=== PATIENT | female | born 1950 | race Caucasian/White ===

== ENCOUNTER 2019-11-21 10:15 | Outpatient (CLI) | payer MEDICARE, SELFPAY ==
--- NOTE | 2019-11-21 10:58 | ECG_ITS ---
Measurements Intervals [place] Rate: 61 P: 21 IL: 202 QRS: -8 QRSD: 92 T: 18 QT: 413 QTc: 418 Interpretive Statements SINUS RHYTHM BORDERLINE AV CONDUCTION DELAY VOLTAGE CRITERIA FOR LVH DELAYED PRECORDIAL R/S TRANSITION BASELINE ARTIFACT- I, II, III, AVR, AVL, AVF BORDERLINE ECG Electronically Signed On 11-21-2019 11:39:03 CDT by Michael Ch D.O.
[2019-11-21 11:35] LABS: Basophils Absolute Auto 0.1 K/mm3 (0.0-0.1); Basophils Percent Auto 0.8 % (0.2-1.2); Eosinophils Absolute Auto 0.1 K/mm3 (0-0.3); Eosinophils Percent Auto 1.4 % (0-4.4); Hematocrit 41.2 % (37.0-47.0); Hemoglobin 13.4 g/dL (12.0-15.0); Immature Granulocyte Absolute 0.02 K/mm3 (0.00-0.031); Immature Granulocyte Percent A 0.3 % (0-0.5); Lymphocytes Absolute Auto 2.91 K/mm3 (0.9-3.2); Lymphocytes Percent Auto 37.9 % (18.3-44.2); Mean Corpuscular HGB Conc 32.5 g/dl (32-36); Mean Corpuscular Volume 86.2 fl (80-100); Monocytes Absolute Auto 0.5 K/mm3 (0.1-0.6); Monocytes Percent Auto 6.9 % (2.6-8.5); Neutrophils Absolute Auto 4.1 K/mm3 (1.3-6.7); Neutrophils Percent Auto 52.7 % (45.5-73.1); Platelet Count Result 373 k/mm3 (150-375); Red Blood Count 4.78 M/mm3 (4.2-5.4); Red Cell Distribution Width 12.8 % (11.5-14.5); White Blood Count 7.7 K/mm3 (4.5-10.0)
[2019-11-21 11:45] LABS: INR 0.9; Prothrombin Time 11.6 Seconds (11.1-14.7)
[2019-11-21 11:46] LABS: Partial Thromboplastin Time 28.4 SECONDS (22.3-36.8)
[2019-11-21 11:55] LABS: Alanine Aminotransferase 20 U/L (4-35); Albumin Level 4.8 g/dL (3.5-5.1); Alkaline Phosphatase 65 U/L (38-126); Aspartate Amino Transferase 22 U/L (14-36); Bilirubin,Total 0.3 mg/dL (0.2-1.3); Blood Urea Nitrogen 14 mg/dL (7-17); Calcium 9.5 mg/dL (8.4-10.2); Carbon Dioxide 29 mmol/L (22-30); Chloride 103 mmol/L (98-107); Estimated Glomerular Filt Rate > 60; Glucose 90 mg/dL (65-105); Sodium 138 mmol/L (137-145)
== END 2019-11-21 10:16 | disposition home or self-care (01) ==
PROVIDERS: PCP Internal Medicine; Visit Provider Urology
DX: Z01.818 Encounter for other preprocedural examination (principal); I10 Essential (primary) hypertension; N95.0 Postmenopausal bleeding; D25.9 Leiomyoma of uterus, unspecified
CPT/HCPCS: 36415; 80053; 85025; 85610; 85730; 86850; 86900; 86901; 87077; 87086; 87088; 87186; 93005

== ENCOUNTER 2020-03-16 10:41 | Outpatient (CLI) | payer MEDICARE, SELFPAY ==
[2020-03-16 11:33] LABS: Basophils Absolute Auto 0.1 K/mm3 (0.0-0.1); Basophils Percent Auto 0.7 % (0.2-1.2); Eosinophils Absolute Auto 0.1 K/mm3 (0-0.3); Eosinophils Percent Auto 1.4 % (0-4.4); Hematocrit 40.8 % (37.0-47.0); Hemoglobin 13.2 g/dL (12.0-15.0); Immature Granulocyte Absolute 0.02 K/mm3 (0.00-0.031); Immature Granulocyte Percent A 0.2 % (0-0.5); Lymphocytes Percent Auto 40.9 % (18.3-44.2); Mean Corpuscular HGB Conc 32.4 g/dl (32-36); Mean Corpuscular Hemoglobin 27.9 pg (26-34); Mean Corpuscular Volume 86.3 fl (80-100); Mean Platelet Volume 8.6 fl (7.4-10.4); Monocytes Absolute Auto 0.5 K/mm3 (0.1-0.6); Monocytes Percent Auto 6.4 % (2.6-8.5); Neutrophils Absolute Auto 4.2 K/mm3 (1.3-6.7); Neutrophils Percent Auto 50.4 % (45.5-73.1); Platelet Count Result 354 k/mm3 (150-375); Red Blood Count 4.73 M/mm3 (4.2-5.4); Red Cell Distribution Width 12.8 % (11.5-14.5); White Blood Count 8.3 K/mm3 (4.5-10.0)
[2020-03-16 11:37] LABS: INR 0.9; Prothrombin Time 11.7 Seconds (11.1-14.7)
[2020-03-16 11:38] LABS: Partial Thromboplastin Time 27.5 SECONDS (22.3-36.8)
[2020-03-16 11:44] LABS: Alanine Aminotransferase 21 U/L (4-35); Albumin Level 4.9 g/dL (3.5-5.1); Alkaline Phosphatase 70 U/L (38-126); Aspartate Amino Transferase 22 U/L (14-36); Bilirubin,Total 0.3 mg/dL (0.2-1.3); Blood Urea Nitrogen 17 mg/dL (7-17); Calcium 9.2 mg/dL (8.4-10.2); Carbon Dioxide 26 mmol/L (22-30); Chloride 106 mmol/L (98-107); Estimated Glomerular Filt Rate > 60; Glucose 100 mg/dL (65-105); Sodium 138 mmol/L (137-145)
== END 2020-03-16 10:42 | disposition home or self-care (01) ==
PROVIDERS: PCP Internal Medicine; Visit Provider Urology
DX: N81.4 Uterovaginal prolapse, unspecified (principal); Z01.812 Encounter for preprocedural laboratory examination
CPT/HCPCS: 36415; 80053; 85025; 85610; 85730; 86850; 86900; 86901; 87086

== ENCOUNTER 2020-03-20 00:31 | Outpatient (CLI) | payer MEDICARE, SELFPAY ==
[2020-03-20 19:22] LABS: SARS-CoV-2 RNA PCR Negative
== END 2020-03-20 00:32 | disposition home or self-care (01) ==
LOC: ANHCOVIDDT 00:31
PROVIDERS: PCP Internal Medicine; Visit Provider Urology
DX: Z01.812 Encounter for preprocedural laboratory examination (principal); Z11.59 Encounter for screening for other viral diseases
CPT/HCPCS: 87635; C9803; U0003

== ENCOUNTER 2020-03-23 01:46 | Day surgery (SDC) | payer MEDICARE, SELFPAY ==
[2019-11-21 10:58] VITALS: BP 131/61; PULSE 71; RESP 16; TEMP 37; O2SAT 98; BMI 29.2
--- NOTE | 2020-03-18 07:43 | P.HP_ITS ---
H&P: HPI History of Present Illness Chief complaint: Uterine Prolapse/ Cystocele Narrative: Danielle Chavez is a 69 year old female 4 para 3 is admitted for robotic supracervical hysterectomy and bilateral salpingo-oophorectomy. She has organ prolapse. She will undergo pelvic repair by Dr. Singleton. Risks and benefits reviewed including but not exclusive of , aspiration pneumonia, bleeding, transfusion, perforation injury to bowel, bladder, ureters, or other internal organs with need for laparo griffin. She voiced good understanding. She received the [employer] handout entitled hysterectomy as well as the did Shonna handout. She had all questions answered. She asked to proceed Review of Systems Review of Systems: All systems reviewed & are unremarkable except as noted in HPI and below PMFSH Family History Family History Other Diabetes mellitus Family history of alcoholism Family history of arthritis Family history of genetic disorder Family history of liver disease Hypertension Social History Social History Smoking status: Never smoker Alcohol intake: current Gender identity (if verbalized by the patient): Female Meds Home Medications and Allergies Home Medications Medication Instructions Recorded Confirmed Type esomeprazole magnesium 40 mg PO DAILY 11/21/19 03/13/20 History trandolapril-verapamil [Tarka] 1 tablet PO HS 11/21/19 03/13/20 History Allergies Allergy/AdvReac Type Severity Reaction Status Date / Time Sulfa (Sulfonamide Allergy Unknown HIVES Unverified 03/13/20 14:12 Antibiotics) RIZATRIPTAN BENZOATE Allergy Severe CAUSED Uncoded 03/13/20 14:12 HYPERTENSIVE CRISIS Exam Const: General: no acute distress Eyes: General: appearance normal, both eyes and all related structures Neck: Neck: supple and no JVD Thyroid: thyroid normal Resp: Effort & Inspection: normal respiratory effort Auscultation: clear to auscultation bilaterally Cardio: Rate: regular rate Rhythm: regular rhythm GI: Inspection: non-distended GI Palp: Yes Soft to palpation, No Tenderness to palpation present (GI) and No Guarding due to palpation present (GI) Auscultation: normal bowel sounds : External Female Exam: normal external appearance and Abnormal introitus Speculum Exam - Vagina: normal appearance of the vagina ( 2nd to 3rd degree prolapse is present with a cystocele) Skin: General skin exam: no rashes or lesions noted Extrem: General: normal to inspection and no edema Psych: Mental Status: mental status grossly normal Affect: normal affect Assessment and Plan Additional Plan impression: Pelvic prolapse Plan: Robotic supracervical hysterectomy and bilateral salpingo-oophorectomy. Repair of pelvic prolapse per Dr. Tiwari
[2020-03-23] VITALS (16 sets, daily range): BP systolic 95–122; BP diastolic 49–72; PULSE 52–73; RESP 12–18; TEMP 35.4–36.7; O2SAT 95–100
--- NOTE | 2020-03-23 06:38 | WPDHPUPDATE1 ---
History and Physical Update Update Date/Time: 03/23/20 06:38 History and Physical has been reviewed, including an updated exam of the patient. There are NO changes in the patient's condition. Risks, benefits, and alternatives have been discussed and questions answered. Patient agrees to proceed with procedure.
[2020-03-23] MEDS: LACTATED RINGERS 1,000 ML 30 ML IV CONT ×2 (06:55→10:21)
--- NOTE | 2020-03-23 07:01 | WPDHPUPDATE1 ---
History and Physical Update Update Date/Time: 03/23/20 07:01 History and Physical has been reviewed, including an updated exam of the patient. There are NO changes in the patient's condition. Risks, benefits, and alternatives have been discussed and questions answered. Patient agrees to proceed with procedure.
--- NOTE | 2020-03-23 07:16 | WPDANESEPPF ---
Anes - Initial Pre Proc Eval Procedure: Operation Date: 03/23/20 07:30 Proposed Procedures p Robotic Sacrocolpopexy, Possible Urethral Sling - Jorge Singleton MD s Robotic Assisted Supracervical Hysterectomy Bilateral Salpingo-Oophorectomy - Joseph Kunz MD Date/Time: 03/23/20 07:16 Surgeon: Jorge Singleton MD Pre Op Diagnosis: Uterine Prolapse/ Cystocele Patient Data Age: 69 Gender: F Height: 5 ft 2 in Weight: 72.4 kg Last Vital Signs Temp 97.0 F L 03/23/20 06:43 Pulse 73 03/23/20 06:43 Resp 16 03/23/20 06:43 BP 122/55 L 03/23/20 06:43 Pulse Ox 99 03/23/20 06:43 Allergies Allergy/AdvReac Type Severity Reaction Status Date / Time rizatriptan Allergy Severe HYPERTENSIVE Verified 03/23/20 07:13 CRISIS Sulfa (Sulfonamide Allergy Severe HIVES Verified 03/23/20 07:13 Antibiotics) Home Medications Medication Instructions Recorded Confirmed Type esomeprazole magnesium 40 mg PO DAILY 11/21/19 03/23/20 History trandolapril-verapamil [Tarka] 1 tablet PO HS 11/21/19 03/23/20 History Patient hx anesthesia problems: none Family hx anesthesia problems: none PMFSH Past Medical History Medical History (Updated 03/23/20 @ 07:16 by Hiro Holden MD) GERD (gastroesophageal reflux disease) Hypertension OTIS (obstructive sleep apnea) Family History Family History Other Diabetes mellitus Family history of alcoholism Family history of arthritis Family history of genetic disorder Family history of liver disease Hypertension Social History Social History Smoking status: Never smoker Alcohol intake: current Gender identity (if verbalized by the patient): Female Anes - Eval Final PreProcedure Day of Procedure 03/23/20 07:16 Patient weight: normal Heart: regular rate and rhythm Lungs: clear to auscultation Airway: Mallampati scale class II Neurological: alert and oriented Last oral intake: >/= 8 hours ASA classification: III Emergent: no Anesthetic plan: proceed Anesthesia type and monitoring: general ETT and standard monitoring Informed Consent: The patient's anesthetic plan and its attendant risks and benefits were discussed with the patient/family/POA. Questions were solicited and answers provided to the satisfaction of the patient/family/POA.
[2020-03-23] MEDS: ACETAMINOPHEN 500 MG TABLET 1000 MG PO (07:25)
[2020-03-23] MEDS: KETOROLAC 15 MG/ML VIAL (*BKC) IV PUSH ×2 (07:25→22:43)
[2020-03-23] MEDS: ceFAZolin 2 GM/D5W 50 ML 2 GM/50 ML BAG IVPB (07:30)
[2020-03-23] MEDS: metroNIDAZOLE 500 MG/ISO 100ML 500 MG/100 ML BAG 100 MG IVPB ×2 (07:51→15:10)
[2020-03-23] MEDS: BUPIVACAINE/EPINEPHRINE 0.25% 50 ML VIAL INFILTRATE (08:16)
--- NOTE | 2020-03-23 08:39 | P.OP_ITS ---
Procedure Note - Detailed Date of procedure: 03/23/20 Pre-op diagnosis: Uterine Prolapse/ Cystocele Surgeon: Joseph Kunz MD Postop diagnosis uterine prolapse/ cystocele Procedure: Robotic supracervical hysterectomy and bilateral salpingo- oophorectomy with minimal lysis of adhesions Anesthesia: General endotracheal EBL: 5Cc Complications: None Findings: Prolapsed uterus / cystocele/ pelvic adhesions. Note this was done in conjunction with a robotic supracervical hysterectomy BSO and sacral colpope xy with Dr. Singleton. Description of procedure: The patient was prepped and draped in the normal sterile fashion and placed in the dorsal lithotomy position. Under excellent general trach anesthesia weighted speculum placed in posterior fornix of vagina. Anterior lip of the cervix grasped with a single-tooth tenaculum and Hardy's cannula inserted. This was used to be attached later for uterine manipulation. A [address] was [address] Singleton proceeded with placing the trocars and docking the robot please see his operative report for full details. At this point I attended the console. The left round ligament was grasped, burned, cut. Anteriorly adhesions were seen and these were sharply dissected away from the anterior abdominal wall and the posterior surface of the uterus. The ovaries and tubes appeared grossly within normal limits. A bladder flap was formed by sharply dissecting through the and reflecting the bladder caudally from the uterus and cervix to the opposite round ligament which was clamped, burned, cut. The left infundibulopelvic structure was skeletonized. This was serially clamped, burned, cut and brought to the level of the previously cut round ligament. In like fashion the infundibulopelvic on the right was skeletonized clamped, burned, cut and brought to the level of the previously cut round ligament. The cardinal and broad ligaments on the left were then serially skeletonized clamped, burned, cut. And brought down to the level uterine vessels these were individually clamped, burned, cut. In like fashion the cardinal and broad ligaments on the right were clamped, burned, cut and brought down the lateral edge of the cervix and uterus to the uterine vessels which were individually skeletonized. These were then clamped, burned, cut. Excellent blanching of the uterus was noted. Due to the larger size of the uterus and incision was made down the center the uterus and cervix. A supracervical incision was made and these were placed in 2 pieces in an Endo-Catch. EBL was 5cc to that point. Dr. Singleton took over from there. All sponge, needle, instrument counts were correct up to this point. There were no immediate comp lications as well.
--- NOTE | 2020-03-23 10:19 | PM.PROC ---
Procedure Note - Detailed Date of procedure: 03/23/20 Pre-op diagnosis: Uterine Prolapse/ Cystocele Uterine prolapse Stress urinary incontinence Post-op diagnosis: same Procedure performed: Robotic assisted laparoscopic sacral colpopexy Mid urethral sling Cystoscopy Description of procedure: She understood the risks of bleeding, infection, damage to surrounding organs, bowel injury, bowel obstruction, recurrence of prolapse, persistent or recurrent stress incontinence, mesh related complications including exposure and extrusion, diskitis, postoperative voiding dysfunction including incontinence and retention, hip and leg pain, dyspareunia, and she agrees to proceed. She was correctly identified and informed consent was obtained. She was brought to the operating room. She was given general anesthesia. She was placed in the dorsal lithotomy position. All pressure points were padded. She was given appropriate perioperative antibiotics. Time-out performed. I anesthetized the skin 3 fingerbreadths cephalad to the umbilicus. I incised the skin. I dissected down to locate the fascia. I grasped the fascia with Stanford clamps. I entered the fascia sharply. I placed Vicryl sutures for later fascial closure. I placed a midline trocar. Under direct vision 2 additional trocars were placed on the right and left upper quadrant. She was placed in steep Trendelenburg and the robot was docked. Her warhead maintenance specialist performed the portion of the procedure and left the specimen and a sac which was extracted. I then sat at the console. With the Sizer in the vagina I created a plane on the anterior and posterior vaginal wall. This was done for several cm taking great care not to injure the vagina, bladder, or rectum. I introduced the mesh into the abdomen. I sewed the anterior leaflet of mesh on the anterior vaginal wall and posterior leaf of the mesh on the posterior vaginal wall with several Chandler-Geoffrey sutures taking great care not to go through and through. I then reflected the colon laterally. I opened up the posterior peritoneum over the sacral promontory. I carried this into the cul-de-sac. I kept the ureters lateral. I freed up the edges. I located the anterior longitudinal ligament of the sacrum. I tensioned the mesh appropriately. I did a vaginal exam to ensure prolapse reduction without undue tension. I then sewed the proximal leaflet of mesh onto the ligament with 3 sutures of 2 0 Chandler-Geoffrey. Next the mass was meticulously retroperitonealized with a running 2 0 Monocryl suture. I allowed the colon to go back into its normal anatomic location. There is no signs of any impingement or stricturing. The abdomen was exited. Fascia was closed. Skin was closed with Monocryl and glue. I turned my attention towards the urethral sling. I marked out the thigh incisions. I anesthetize the skin and made those incisions. I anesthetized the anterior vaginal wall over the mid urethra. I made a 1 cm incision. I dissected out laterally taking great care not to injure the urethra or the vaginal wall. I next passed the helical trocars to 1st on the left and then on the right. This was done from the thigh incision towards the vaginal incision. The sling was connected to the trocars and brought out through the thigh incision. I tensioned the sling appropriately. I cut and removed the plastic sheaths. I then closed the incision with 2 0 Vicryl. There is a small area of bleeding on the posterior wall of vagina. The tissue was quite thin in this area. I over sewed it with 2 interrupted 2 0 Vicryl sutures. There was no significant bleeding after this I did leave a small amount of vaginal packing. I then performed cystoscopy. The bladder is examined. There was no tumors, stones, foreign bodies, surgical artifact. Both ureters were seen to excrete clear yellow urine. There is no surgical artifact in the urethra. Catheter was then replaced. She was awakened and transferred
[2020-03-23] MEDS: ONDANSETRON INJ 4 MG/2 ML VIAL IV PUSH ×2 (10:44→16:32)
--- NOTE | 2020-03-23 11:40 | PC.NURSE ---
This patient, Danielle Chavez, was received from PACU per bed to room 278. Patient/family oriented to unit policies and routines
[2020-03-23] MEDS: KCL 20 MEQ/D5/0.45% SOD CHL 1,000 ML 100 ML IV CONT ×2 (12:11→22:41)
[2020-03-23] MEDS: MORPHINE SULFATE 2 MG/ML INJ IV PUSH (13:28)
[2020-03-23] MEDS: SIMETHICONE 80 MG TAB.CHEW PO ×2 (20:00→22:42)
[2020-03-23] MEDS: lisinopriL 20 MG TABLET PO (22:42)
[2020-03-23] MEDS: VERAPAMIL HCL ER 240 MG TABLET.ER PO (22:42)
[2020-03-24] MEDS: metroNIDAZOLE 500 MG/ISO 100ML 500 MG/100 ML BAG 100 MG IVPB ×2 (00:14→07:07)
[2020-03-24 04:30] VITALS: BP 104/56; PULSE 74; RESP 16; TEMP 36.8; O2SAT 96
[2020-03-24] MEDS: SIMETHICONE 80 MG TAB.CHEW PO ×4 (04:37→12:38)
--- NOTE | 2020-03-24 06:21 | P.DS_ITS ---
DS: Admitting Diagnosis Admitting Diagnosis Admitting Diagnosis: Essential (primary) hypertension prolapse/leslie/cystocoele DS: Summary Time Spent with Patient Time attestation: Total time spent providing and/or coordinating discharge services: Exam Const: General: no acute distress Eyes: General: appearance normal, both eyes and all related structures Neck: Neck: supple and no JVD Thyroid: thyroid normal Resp: Effort & Inspection: normal respiratory effort Auscultation: clear to auscultation bilaterally Cardio: Rate: regular rate Rhythm: regular rhythm GI: Inspection: non-distended GI Palp: Yes Soft to palpation, No Tenderness to palpation present (GI) and No Guarding due to palpation present (GI) Auscultation: normal bowel sounds : General: Yes bladder normal to palpation External Female Exam: normal external appearance Speculum Exam - Vagina: normal vaginal discharge and No vaginal bleeding Speculum Exam - Cervix: nontender Bimanual exam- vagina & uterus: bladder normal to palpation and No Cervical tenderness present OB/external & speculum: No vaginal bleeding Skin: General skin exam: no rashes or lesions noted Extrem: General: normal to inspection and no edema Psych: Mental Status: mental status grossly normal Affect: normal affect DS: Data Data Completed and Pending Pending studies at discharge: Pending at discharge 03/23/20 08:31 Surgical [PTH] Routine Discharge Plan Discharge Attending physician on discharge: Joseph Kunz Discharging Clinician: Joseph Kunz Patient Disposition: Home, Self-Care Activity: may shower, no straining, may drive after 2 weeks and pelvic rest Diet: heart healthy Wound Care Instructions: follow printed instructions Discharge Instructions: No lifting >20lb, exercise for 6 weeks No tub bath or pool for 2 weeks No exercise for 6 weeks Follow-up/Referrals: Jorge Singleton MD [Physician] - (In 1 week and in 6 weeks) Joseph Kunz MD [Physician] - Discharge Medications: New tramadol 50 mg tablet 50 mg PO Q6H PRN (Reason: pain) Qty: 20 RF: 0 docusate sodium [Colace] 100 mg capsule 100 mg PO BID Qty: 60 RF: 0 hydrocodone-acetaminophen [[place]] 5-325 mg tablet 1 tablet PO Q4H PRN (Reason: pain) Qty: 30 RF: 0 Continued esomeprazole magnesium 40 mg Capsule,Delayed Release(Dr/Ec) 40 mg PO DAILY RF: 0 trandolapril-verapamil [Tarka] 4-240 mg Tablet, Ir - Er, Biphasic 24hr 1 tablet PO HS RF: 0 Primary Care Provider: Sheng,Zach Gilmore Attending physician on admission: Jorge Singleton.
--- NOTE | 2020-03-24 06:24 | PM.OBPNVD ---
OB - PN: Subj Subjective Date/time seen: 03/24/20 06:24 Patient comments: no complaints and pain well controlled OB - PN A/P Plan day: 1 Plan: discharge home and follow up 6 weeks (4) Time Spent With Patient Time: Total time spent is greater than 50% in coordination of care (as documented) at patient's floor/unit and/or counseling patient: Time with patient: less than 15 minutes Review of Systems Review of Systems: All systems reviewed & are unremarkable except as noted in HPI and below Exam Const: General: no acute distress Eyes: General: appearance normal, both eyes and all related structures Neck: Neck: supple and no JVD Thyroid: thyroid normal Resp: Effort & Inspection: normal respiratory effort Auscultation: clear to auscultation bilaterally Cardio: Rate: regular rate Rhythm: regular rhythm GI: Inspection: non-distended GI Palp: Yes Soft to palpation, No Tenderness to palpation present (GI) and No Guarding due to palpation present (GI) Auscultation: normal bowel sounds : General: Yes bladder normal to palpation External Female Exam: normal external appearance Speculum Exam - Vagina: normal vaginal discharge and No vaginal bleeding Speculum Exam - Cervix: nontender Bimanual exam- vagina & uterus: bladder normal to palpation and No Cervical tenderness present OB/external & speculum: No vaginal bleeding Skin: General skin exam: no rashes or lesions noted Extrem: General: normal to inspection and no edema Psych: Mental Status: mental status grossly normal Affect: normal affect
[2020-03-24 06:40] VITALS: BP 104/53; PULSE 70; RESP 18; TEMP 37.5; O2SAT 94
[2020-03-24] MEDS: DOCUSATE SODIUM 100 MG CAPSULE PO (07:03)
[2020-03-24] MEDS: ENOXAPARIN 30 MG/0.3 ML SYRINGE SUB-Q (07:12)
[2020-03-24] MEDS: IBUPROFEN 600 MG TABLET PO (08:12)
--- NOTE | 2020-03-24 09:55 | PC.NURSE ---
0930 Pt ambulated to bathroom; tolerated well. Pt unable to void. Sat for about 20 minutes and unable to void.
--- NOTE | 2020-03-24 13:03 | WPDUROPN2 ---
Progress Note: A&P Assessment and Plan (1) Cystocele: Status: Acute Assessment and Plan: Ok to discharge home. (2) Urinary retention: Code(s): R33.9 - Retention of urine, unspecified Status: Acute Assessment and Plan: Re-Place dalal and follow up for voiding trial. Subjective Subjective Date/Time Seen: 03/24/20 13:03 POD #1 Robotic Assisted Laparoscopic Sacral Colpopexy, Mid Urethral Sling and Cystoscope. Review of Systems Cardiovascular: Cardiovascular: Denies chest pain Respiratory: Respiratory: Reports no additional respiratory complaints Gastrointestinal: Gastrointestinal: Reports abdominal pain (at incision sites only), Denies nausea and Denies vomiting Genitourinary: Genitourinary: Reports other (unable to void after dalal removal) Exam Resp: Effort & Inspection: normal respiratory effort Cardio: Rate: regular rate GI: Inspection: incision (all well approximated, no drainage present, minimal bruising) Extrem: General: no edema Objective Data Vital Signs Vital Signs: Vital Signs - 24 hr 03/23/20 14:00 03/23/20 15:00 03/23/20 20:00 Temperature 97.2 F L 97.9 F Pulse Rate 57 L 55 L 68 Respiratory Rate 18 16 Blood Pressure 102/51 L 101/49 L 114/64 Pulse Oximetry 100 99 98 03/23/20 23:00 03/24/20 04:30 03/24/20 06:40 Temperature 97.5 F L 98.2 F 99.5 F Pulse Rate 68 74 70 Respiratory Rate 16 16 18 Blood Pressure 115/60 104/56 L 104/53 L Pulse Oximetry 99 96 94 Intake/Output Intake/Output: Intake & Output 03/21/20 03/22/20 03/23/20 03/24/20 23:59 23:59 23:59 23:59 Intake Total 1500 340 Output Total 1500 1100 Balance 0 -760 Meds/Results Medications: Active Medications Generic Name Dose Route Start Last Admin Trade Name Freq PRN Reason Stop Dose Admin Hydrocodone Bitart/Acetaminophen 1 tab 03/23/20 11:42 03/24/20 09:49 [place] 5-325 Mg PO 1 tab Q4H PRN Administration Pain Rated 4-5 Cephalexin HCl 500 mg 03/24/20 13:00 Keflex Capsule PO QID BETTIE Diphenhydramine HCl 25 mg 03/23/20 11:42 Benadryl Inj IV PUSH Q6H PRN Itching Docusate Sodium 100 mg 03/23/20 11:42 03/24/20 07:03 Colace Capsule PO 100 mg DAILY BETTIE Administration Enoxaparin Sodium 30 mg 03/24/20 09:00 03/24/20 07:12 Lovenox SUB-Q 30 mg DAILY BETTIE Administration Potassium Chloride/Dextrose/Sod Cl 1,000 mls @ 100 mls/hr 03/23/20 11:42 03/23/20 22:41 Kcl 20 Meq/D5/0.45% Sod Chl IV CONT 100 mls/hr .Q10H BETTIE Administration Metronidazole 500 mg in 100 mls @ 100 mls/hr 03/23/20 16:00 03/24/20 07:07 Flagyl 500 Mg/Iso Soln 100 Ml IVPB 100 mls/hr Q8H BETTIE Administration Ibuprofen 600 mg 03/24/20 07:16 03/24/20 08:12 Motrin PO 600 mg Q6H PRN Administration Cramping Lisinopril 20 mg 03/23/20 21:00 03/23/20 22:42 Prinivil PO 20 mg HS BETTIE Administration Morphine Sulfate 2 mg 03/23/20 11:42 03/23/20 13:28 Morphine Sulfate Inj IV PUSH 2 mg Q2H PRN Administration Pain Rated 6 or Greater Ondansetron HCl 4 mg 03/23/20 11:42 03/23/20 16:32 Zofran Inj IV PUSH 4 mg Q6H PRN Administration Nausea And Vomiting Pantoprazole Sodium 40 mg 03/23/20 12:05 03/24/20 09:38 Protonix PO Not Given QAM [facility] Simethicone 80 mg 03/24/20 05:48 03/24/20 12:38 Mylicon PO 80 mg Q2H PRN Administration Gas Discomfort Verapamil HCl 240 mg 03/23/20 21:00 03/23/20 22:42 Verapamil Hcl Er PO 240 mg HS BETTIE Administration Zolpidem Tartrate 5 mg 03/23/20 11:42 Ambien PO HS PRN Insomnia
--- NOTE | 2020-03-24 15:02 | WPDANESPN ---
Anes - Prog Note Post-Op Date/Time: 03/24/20 15:02 Cardiovascular status: normal Respiratory status: normal Airway patency: baseline Mental status: baseline Post-Op hydration status: normal Vital Signs: Last Vital Signs Temp 99.5 F 03/24/20 06:40 Pulse 70 03/24/20 06:40 Resp 18 03/24/20 06:40 BP 104/53 L 03/24/20 06:40 Pulse Ox 94 03/24/20 06:40 I/O: Intake & Output 03/23/20 03/24/20 03/24/20 23:59 07:59 15:59 Intake Total 1400 340 Output Total 1150 1100 Balance 250 -760 Post-procedural complaints: none Patient Feedback: Patient satisfied with anesthetic care.
[2020-03-24] MEDS: CEPHALEXIN 500 MG CAPSULE PO (15:44)
--- NOTE | 2020-03-24 21:16 | PC.NURSE ---
[id number] Pt's discharge papers reviewed with her; she was shown how to change her dalal catheter baby to leg bag; reviewed hygiene care; pt discharged in apparent stable condition.
== END 2020-03-24 15:56 | disposition home or self-care (01) ==
LOC: ANHSURGERY 06:24 → ANHOB2 11:43
PROVIDERS: Obstetrics & Gynecology; PCP Internal Medicine; Visit Provider Urology
PROC: (CPT 57425; principal; 2020-03-23 07:30)
PROC: 0UT94ZZ Resection of Uterus, Percutaneous Endoscopic Approach (ICD-10-PCS; CPT 57425; 2020-03-23 07:30)
DX: N81.4 Uterovaginal prolapse, unspecified (principal); R33.9 Retention of urine, unspecified; N39.3 Stress incontinence (female) (male); D25.2 Subserosal leiomyoma of uterus; D25.1 Intramural leiomyoma of uterus; N73.6 Female pelvic peritoneal adhesions (postinfective); N80.0 Endometriosis of uterus; I10 Essential (primary) hypertension; G47.33 Obstructive sleep apnea (adult) (pediatric); K21.9 Gastro-esophageal reflux disease without esophagitis
CPT/HCPCS: 57288; 57425; 58542; S2900; 36415; 80053; 85025; 85610; 85730; 86850; 86900; 86901; 87086; 87635; 88307; 99199; A9270; C1771; C1781; C9803; J0690; J1100; J1170; J1650; J1885; J2250; J2270; J2405; J2704; J3010; J3480; J7030; J7120; U0003

== ENCOUNTER 2020-08-21 09:58 | Outpatient (CLI) | payer MEDICARE, SELFPAY ==
[2020-08-21 10:46] LABS: SARS-CoV-2 Ag Negative (Negative)
== END 2020-08-21 09:59 | disposition home or self-care (01) ==
PROVIDERS: Visit Provider Physician Assistant Medical
DX: Z20.828 Contact with and (suspected) exposure to other viral communicable diseases (principal)
CPT/HCPCS: 87426

== ENCOUNTER → 2020-12-26 07:42 | Outpatient (CLI) | payer MEDICARE, SELFPAY ==
--- NOTE | ~2020-12-26 | MR_ITS ---
EXAMINATION: MR knee LT wo con DATE: 12/26/2020 08:35 INDICATION: Left knee pain. TECHNIQUE: Magnetic resonance imaging (MRI) of the left knee was performed without intravenous contra st. Sequences included axial PD-weighted FS FSE, coronal PD-weighted FSE and PD-weighted FS FSE, sagi ttal PD-weighted FSE, and sagittal T2-weighted FS FSE. COMPARISON: None. FINDINGS: Medial compartment: There is a complex tear involving body and posterior horn of medial meniscus. There is cartilage surf susan regularity of femoral condyle and tibial condyle. There are tiny osteophytes. Lateral compartment: Lateral meniscus is normal. Lateral compartment cartilage is normal. Patellofemoral compartment: There is deep partial thickness cartilage loss of patellar medial facet with mild subchondral edema-l santhosh marrow signal intensity. There is cartilage surface irregularity of trochlea. Ligaments and tendons: The anterior and posterior cruciate ligaments are normal. Medial collateral ligament and lateral kim ateral ligament complex are intact. Edema around the medial collateral ligament is likely from the me dial meniscal tear. There is mild patellar tendinopathy. Fluid: There is a small knee joint effusion. There is a small Forrest's cyst. There is mild semimembranosus-ti bial collateral ligament bursitis. IMPRESSION: 1. Moderate chondrosis of patellofemoral compartment and mild chondrosis of medial compartment. 2. Complex tear of medial meniscus. 3. Small knee joint effusion. 4. Small Forrest's cyst. Mild semimembranosus-tibial collateral ligament bursitis. Reviewed, dictated and finalized at location A. IMPRESSION: 1. Moderate chondrosis of patellofemoral compartment and mild chondrosis of med ial compartment. 2. Complex tear of medial meniscus. 3. Small knee joint effusion. 4. Small Forrest's cyst. Mild semimembranosus-tibial collateral ligament bursitis .
== END ==
PROVIDERS: PCP Internal Medicine; Visit Provider Physician Assistant Medical
DX: M25.462 Effusion, left knee (principal); M71.22 Synovial cyst of popliteal space [Baker], left knee; S83.232A Complex tear of medial meniscus, current injury, left knee, initial encounter; X58.XXXA Exposure to other specified factors, initial encounter
CPT/HCPCS: 73721

== ENCOUNTER → 2021-02-23 01:25 | Outpatient (CLI) | payer MEDICARE, SELFPAY ==
[2021-02-24 16:36] LABS: SARS-CoV-2 RNA PCR Negative
== END ==
PROVIDERS: PCP Internal Medicine; Visit Provider Orthopaedic Surgery
DX: Z01.812 Encounter for preprocedural laboratory examination (principal); Z20.822 Contact with and (suspected) exposure to COVID-19
CPT/HCPCS: C9803; U0003; U0005

== ENCOUNTER 2021-02-26 01:39 | Day surgery (SDC) | payer MEDICARE, SELFPAY ==
[2021-02-15 14:23] VITALS: BMI 29.8
[2021-02-26] VITALS (11 sets, daily range): BP systolic 109–141; BP diastolic 63–74; PULSE 54–68; RESP 12–18; TEMP 36–36.2; O2SAT 97–100
[2021-02-26] MEDS: CELECOXIB 200 MG CAPSULE PO (07:38)
[2021-02-26] MEDS: KETOROLAC 15 MG/ML VIAL (*BKC) IV PUSH (07:39)
[2021-02-26] MEDS: LACTATED RINGERS 1,000 ML 30 ML IV CONT ×2 (07:41→12:19)
--- NOTE | 2021-02-26 08:17 | WPDHPUPDATE1 ---
History and Physical Update Update Date/Time: 02/26/21 08:17 History and Physical has been reviewed, including an updated exam of the patient. There are NO changes in the patient's condition. Risks, benefits, and alternatives have been discussed and questions answered. Patient agrees to proceed with procedure.
[2021-02-26] MEDS: ACETAMINOPHEN 500 MG TABLET 1000 MG PO (08:23)
--- NOTE | 2021-02-26 09:06 | WPDANESEPPF ---
Anes - Initial Pre Proc Eval Procedure: Operation Date: 02/26/21 08:30 Proposed Procedures p Left Knee Arthroscopy, Proceed As Indicated - Oz Rosario MD Date/Time: 02/26/21 09:06 Surgeon: Oz Rosario MD Pre Op Diagnosis: Left Knee Medial meniscus tear Patient Data Age: 70 Gender: F Height: 1.57 m Weight: 73.1 kg Last Vital Signs Temp 36.2 C L 02/26/21 07:35 Pulse 68 02/26/21 07:35 Resp 18 02/26/21 07:35 BP 113/63 02/26/21 07:35 Pulse Ox 98 02/26/21 07:35 Allergies Allergy/AdvReac Type Severity Reaction Status Date / Time rizatriptan Allergy Severe HYPERTENSIVE Verified 02/26/21 08:14 CRISIS Sulfa (Sulfonamide Allergy Severe HIVES Verified 02/26/21 08:14 Antibiotics) hydrocodone Allergy Nausea and Verified 02/26/21 08:14 Vomiting Home Medications Medication Instructions Recorded Confirmed Type esomeprazole magnesium 20 mg PO DAILY 11/21/19 02/26/21 History trandolapril-verapamil [Tarka] 1 tablet PO HS 11/21/19 02/26/21 History tramadol 50 mg PO Q6H PRN #20 tablet 03/23/20 02/26/21 Rx Patient hx anesthesia problems: none Family hx anesthesia problems: none PMFSH Past Medical History Medical History Constipation GERD (gastroesophageal reflux disease) Hypertension OTIS (obstructive sleep apnea) Surgical History Surgical History History of hysterectomy Family History Family History Other Diabetes mellitus Family history of alcoholism Family history of arthritis Family history of genetic disorder Family history of liver disease Hypertension Social History Social History Smoking status: Never smoker Alcohol intake: current Alcohol use details: ONE DRINK PER MONTH Living arrangements: with family Gender identity (if verbalized by the patient): Female Spiritual care concerns: No Anes - Eval Final PreProcedure Day of Procedure 02/26/21 09:06 Patient weight: overweight Heart: regular rate and rhythm Lungs: clear to auscultation Airway: Mallampati scale class II Neurological: alert and oriented Last oral intake: >/= 8 hours ASA classification: III Emergent: no Anesthetic plan: proceed Anesthesia type and monitoring: general LMA and standard monitoring Informed Consent: The patient's anesthetic plan and its attendant risks and benefits were discussed with the patient/family/POA. Questions were solicited and answers provided to the satisfaction of the patient/family/POA.
--- NOTE | 2021-02-26 10:14 | PM.IMHP ---
H&P: HPI History of Present Illness Date/Time: 02/26/21 10:14Pt presents with left knee pain Pt had an MRI completed 12/26/20 which shows complex medial meniscus tear, castellon's cyst, and bursitis. Her pain is located at the anteriomedial aspect of her knee. She states her pain has been improving over the past couple weeks. She is taking Tramadol at night and Tylenol during the day. Involved knee: left Onset: gradual Location of pain: medial and anterior Character: dull ache and shooting Timing of pain: intermittent Exacerbated by: weight bearing, squatting, stairs, rotational activities and prolonged activity Relieved by: Tylenol, ice, rest and NSAIDs Associated symptoms: Reports swelling, popping, clicking and stiffness History of occupational/recreational activity with repetitive motion: No History of prior knee injury: No Chief Complaint: LEFT KNEE PAIN Review of Systems Review of Systems: All systems reviewed & are unremarkable except as noted in HPI and below PMFSH Past Medical History Medical History Constipation GERD (gastroesophageal reflux disease) Hypertension OTIS (obstructive sleep apnea) Surgical History Surgical History History of hysterectomy Family History Family History Other Diabetes mellitus Family history of alcoholism Family history of arthritis Family history of genetic disorder Family history of liver disease Hypertension Social History Social History Smoking status: Never smoker Alcohol intake: current Alcohol use details: ONE DRINK PER MONTH Living arrangements: with family Gender identity (if verbalized by the patient): Female Spiritual care concerns: No Meds Home Medications and Allergies Home Medications Medication Instructions Recorded Confirmed Type esomeprazole magnesium 20 mg PO DAILY 11/21/19 02/26/21 History trandolapril-verapamil [Tarka] 1 tablet PO HS 11/21/19 02/26/21 History tramadol 50 mg PO Q6H PRN #20 tablet 03/23/20 02/26/21 Rx Allergies Allergy/AdvReac Type Severity Reaction Status Date / Time rizatriptan Allergy Severe HYPERTENSIVE Verified 02/26/21 08:14 CRISIS Sulfa (Sulfonamide Allergy Severe HIVES Verified 02/26/21 08:14 Antibiotics) hydrocodone Allergy Nausea and Verified 02/26/21 08:14 Vomiting Vital Signs Vital Signs - 24 hr 02/26/21 07:35 Temperature 36.2 C L Pulse Rate 68 Respiratory Rate 18 Blood Pressure 113/63 Pulse Oximetry 98 Exam Extrem: General: capillary refill normal, no clubbing and no cyanosis Right lower extremity: normal to inspection, full ROM, normal capillary refill and knee; no cyanosis and no edema Left lower extremity: normal to inspection, normal capillary refill, knee Details: tenderness, swelling, abnormal ROM (0 TO 120 DEG) Details: pain with active ROM Details: with extension and with flexion and pain with passive ROM Details: with extension and with flexion, knee ligament exam abnormal, Rey's Test Details: positive medially and laterally and crepitus; no ecchymosis and foot; abnormal ROM, no cyanosis, no edema and joint enlargement noted Assessment and Plan Assessment and plan (1) Medial meniscus tear: Qualifiers: Encounter type: initial encounter Laterality: left Meniscus tear of knee type: complex Tear current or old: current Qualified Code(s): S83.232A - Complex tear of medial meniscus, current injury, left knee, initial encounter Code(s): S83.249A - Other tear of medial meniscus, current injury, unspecified knee, initial encounter Status: Acute Assessment and Plan: BEKAH IS HERE FOR HER LEFT KNEE SCOPE FOR MEDIAL MENISCUS TEAR AND MILD DJD. WE DISCUSSED HER PROCEDURE IN DETAIL WELL COMPLICATIONS AND RISKS. Evelyn
[2021-02-26] MEDS: ceFAZolin 2 GM/D5W 50 ML 2 GM/50 ML BAG IVPB (10:31)
[2021-02-26] MEDS: BUPIVACAINE HCL 0.5% PF 30 ML VIAL INFILTRATE (10:38)
--- NOTE | 2021-02-26 11:53 | W.PM.PROC2 ---
Procedure Note - Detailed Date of Procedure 02/26/21 Pre-op Diagnosis Left Knee Medial Meniscus Tear Post-op Diagnosis same Procedure Performed LEFT KNEE SCOPE Surgeon Oz Rosario MD Anesthesia general Description of Procedure PATIENT WAS TAKEN TO THE OR. LEFT LEG WAS PREPPED AND DRAPED STERILE. TROCARS WERE PLACED IN THE USUAL FASHION. CAMERA WAS INTRODUCED. THERE WAS CHONDROMALACIA TO THE PATELLA FEMORAL JOINT. THERE WAS A LOT OF SYNOVITIS IN ALL COMPARTMENTS. THE MEDIAL COMPARTMENT SHOWED CHONDROMALACIA TO THE MEDIAL FEMORAL CONDYLE. A SHAVER WAS USED TO PREFORM A CHONDROPLASTY. THERE WAS A COMPLEX MEDIAL MENISCUS TEAR. THE TEAR WAS RESECTED WITH A BITER AND A SHAVER DOWN TO A SMOOTH BASE. ABOUT 30% OF THE MENISCUS WAS REMOVED. THE ACL WAS INTACT. THE LATERAL MENISCUS WAS NOT TORN. THE LAT COMPARTMENT HAD MINIMAL CHONDROMALACIA. CHONDROPLASTY WAS PREFORMED. A SYNOVECTOMY WAS PREFORMED WELL. THE PATELLO FEMORAL JOINT UNDERWENT CHONDROPLASTY. THERE WAS GRADE 2 CHONDROMALACIA IN PART OF THE TROCHLEA AND PART OF THE PATELLA. SYNOVECTOMY WAS PREFORMED IN THE SUPERIOR MEDIAL COMPARTMENT. THE WOUNDS WERE APPROXIMATED WITH 4.0 NYLON. STERILE DRESSING WAS APPLIED. PATIENT WAS EXTUBATED. Estimated Blood Loss 5 Complications No immediate complications Condition stable Disposition PACU
[2021-02-26] MEDS: fentaNYL CITRATE INJ (*CRX) 100 MCG/2 ML VIAL 25 MCG IV PUSH (12:25)
[2021-02-26] MEDS: traMADol HCL (*CRX) 50 MG TABLET PO (12:57)
== END 2021-02-26 13:50 | disposition home or self-care (01) ==
PROVIDERS: PCP Internal Medicine; Visit Provider Orthopaedic Surgery
PROC: (CPT 29870; principal; 2021-02-26 08:30)
DX: M23.332 Other meniscus derangements, other medial meniscus, left knee (principal); M71.22 Synovial cyst of popliteal space [Baker], left knee; M22.42 Chondromalacia patellae, left knee; M65.862 Other synovitis and tenosynovitis, left lower leg; K21.9 Gastro-esophageal reflux disease without esophagitis; G47.33 Obstructive sleep apnea (adult) (pediatric); I10 Essential (primary) hypertension
CPT/HCPCS: 29881; A9270; C9803; J0690; J1100; J1200; J1885; J2405; J2704; J3010; J7120; U0003; U0005

== ENCOUNTER 2021-03-03 10:45 | Outpatient (CLI) | payer MEDICARE, SELFPAY ==
--- NOTE | ~2021-03-03 | US_ITS ---
EXAMINATION: US venous doppler [facility] DATE: 03/03/2021 11:19 INDICATION: Status post left meniscal tear repair. TECHNIQUE: Grayscale ultrasound images without and with compression and Doppler ultrasound images of the left lower extremity veins were obtained. COMPARISON: None. FINDINGS: Noncompressible deep venous thrombosis in the paired left posterior tibial veins at the calf. The vis ualized portions of left common femoral vein, profunda (deep) femoral vein, femoral vein, popliteal v ein, peroneal veins, gastrocnemius vein and greater saphenous vein outflow are patent. 3.4 x 1.6 x 3. 2 cm anechoic Forrest's cyst at the left popliteal fossa. IMPRESSION: 1. [id number] deep venous thrombosis in the posterior tibial veins at the left calf. 2. Small left Forrest's cyst. Reviewed, dictated and finalized at location A. IMPRESSION: 1. [id number] deep venous thrombosis in the posterior tibial veins at the left calf. 2. Small left Forrest's cyst.
== END 2021-03-03 10:46 | disposition home or self-care (01) ==
PROVIDERS: PCP Internal Medicine; Visit Provider Orthopaedic Surgery
DX: Z98.890 Other specified postprocedural states (principal); I82.442 Acute embolism and thrombosis of left tibial vein; M71.22 Synovial cyst of popliteal space [Baker], left knee
CPT/HCPCS: 93971

== ENCOUNTER 2022-02-13 04:01 | Emergency (ER) | payer MEDICARE, SELFPAY ==
--- NOTE | ~2022-02-13 | CT_ITS ---
EXAMINATION: CT abdomen pelvis wo con DATE: 02/13/2022 05:09 INDICATION: Left-sided abdominal pain. History of diverticulitis. TECHNIQUE: Computed tomography (CT) of the abdomen and pelvis was performed without intravenous contr ast. The dose-length product was 311.75 mGy-cm. Automated exposure control and iterative reconstruction technique were employed. COMPARISON: None. FINDINGS: Lung bases are unremarkable. Heart size normal. No significant pleural or pericardial effus ion. There is a subtle hypodense lesion of the right hepatic lobe measuring 3.2 x 2.4 cm. Recommend c orrelation with contrast-enhanced CT or MRI the spleen, pancreas, adrenal glands and kidneys are unre markable. No renal/ureteral stones or hydronephrosis. Bladder is unremarkable. There are pelvic phleb oliths. Nonobstructive bowel pattern. No evidence for diverticulitis. Small fat-containing umbilical hernia. No significant vascular abnormality. No lymphadenopathy. No free air or free fluid. Status po st hysterectomy. Moderate lower thoracic and lumbar spondylosis. IMPRESSION: 1. No acute abdominal abnormality. 2: Hypodense 3.2 cm right hepatic lobe mass. Cannot exclude malignancy. Recommend correlation with c ontrast-enhanced CT or MRI. Reviewed, dictated and finalized at location A. IMPRESSION: 1. No acute abdominal abnormality. 2: Hypodense 3.2 cm right hepatic lobe mass. Cannot exclude malignancy. Recomm end correlation with contrast-enhanced CT or MRI.
[2022-02-13 04:03] VITALS: BP 136/66; PULSE 86; RESP 18; TEMP 36.1; O2SAT 100
[2022-02-13 04:33] LABS: Appearance Urine Clear (Clear); Bilirubin Urine Negative (Negative); Blood Urine Negative (Negative); Color Urine Yellow (Yellow); Glucose Urine UA Negative (Negative); Ketones Urine Negative (Negative); Leukocyte Esterase Ur Trace LEU/UL (Negative); Nitrate Urine Negative (Negative); Protein Urine Negative (Negative); Specific Grav Ur >= 1.030 (1.001-1.035); Urobilinogen Urine 0.2 mg/dL (<2.0); pH Urine 5.5 (5.0-9.0)
[2022-02-13 04:36] LABS: Mucus Urine Moderate /lpf; Squamous Epithelial Cell Urine Occasional /hpf (Few)
[2022-02-13 04:40] LABS: Add Urine Microscopic? YES
[2022-02-13 04:52] LABS: Basophils Absolute Auto 0.1 K/mm3 (0.0-0.1); Basophils Percent Auto 0.3 % (0.2-1.2); Eosinophils Absolute Auto 0.1 K/mm3 (0-0.3); Eosinophils Percent Auto 0.6 % (0-4.4); Hematocrit 39.3 % (37.0-47.0); Immature Granulocyte Absolute 0.05 K/mm3 (0.00-0.031); Immature Granulocyte Percent A 0.2 % (0-0.5); Lymphocytes Absolute Auto 1.47 K/mm3 (0.9-3.2); Lymphocytes Percent Auto 7.2 % (18.3-44.2); Mean Corpuscular HGB Conc 33.1 g/dl (32-36); Mean Corpuscular Hemoglobin 28.8 pg (26-34); Mean Corpuscular Volume 87.1 fl (80-100); Mean Platelet Volume 8.6 fl (7.4-10.4); Monocytes Absolute Auto 1.4 K/mm3 (0.1-0.6); Monocytes Percent Auto 6.7 % (2.6-8.5); Neutrophils Absolute Auto 17.3 K/mm3 (1.3-6.7); Platelet Count Result 325 k/mm3 (150-375); Red Blood Count 4.51 M/mm3 (4.2-5.4); Red Cell Distribution Width 13.2 % (11.5-14.5); White Blood Count 20.4 K/mm3 (4.5-10.0)
[2022-02-13] MEDS: ONDANSETRON INJ 4 MG/2 ML VIAL IV PUSH (05:25)
[2022-02-13] MEDS: SODIUM CHLORIDE 0.9% IV 1,000 ML 999 ML IV CONT (05:25)
[2022-02-13 05:30] LABS: Alanine Aminotransferase 19 U/L (6-35); Albumin Level 4.6 g/dL (3.5-5.1); Alkaline Phosphatase 71 U/L (38-126); Anion Gap 8 mmol/L (8-16); Aspartate Amino Transferase 21 U/L (14-36); Bilirubin,Total 0.5 mg/dL (0.2-1.3); Blood Urea Nitrogen 21 mg/dL (7-17); Carbon Dioxide 25 mmol/L (22-30); Chloride 105 mmol/L (98-107); Estimated CRCL calculation 67 ml/min; Estimated Glomerular Filt Rate > 60; Glucose 120 mg/dL (65-110); Lipase 226 U/L (23-300); Potassium 3.7 mmol/L (3.4-5.0); Sodium 138 mmol/L (137-145)
--- NOTE | 2022-02-13 06:01 | ED.ABDPAIN ---
HPI - Abdominal Pain General Chief Complaint: Abdominal Pain Stated Complaint: Vomiting, constipation, left sided abd pain Time Seen by Provider: 02/13/22 04:24 Source: patient History of Present Illness HPI narrative: Patient presents with left-sided abdominal pain. Patient notes she has had intermittent constipation over the past month is attempted laxative and now only getting small hard stools out. She also reports intermittent left-sided abdominal pain over this time. Today she was feeling nauseous and throwing up which was a new symptom for her so she came to the ER for further evaluation. She denies any blood bile or melena in her secretions. Her pain is primarily on her left abdomen achy intermittent no radiation, no clear aggravating or alleviating factors. She also has history of diverticulosis she has any urinary symptoms or vaginal bleeding. Related Data Home Medications Medication Instructions Recorded Confirmed esomeprazole magnesium 40 mg 20 mg PO DAILY 11/21/19 03/15/21 capsule,delayed release trandolapril 4 mg-verapamil ER 240 1 tablet PO HS 11/21/19 03/15/21 mg tablet,immed-exten release 24 hr (Tarka) Allergies Allergy/AdvReac Type Severity Reaction Status Date / Time rizatriptan Allergy Severe HYPERTENSIVE Verified 03/15/21 13:45 CRISIS Sulfa (Sulfonamide Allergy Severe HIVES Verified 03/15/21 13:45 Antibiotics) hydrocodone Allergy Nausea and Verified 03/15/21 13:45 Vomiting Review of Systems Review of Systems: CONSTITUTIONAL: Denies fever, chills, or sweats. EYES: Denies visual changes, redness, or discharge. ENT: Denies rhinorrhea, congestion, sore throat, or otalgia. CARDIOVASCULAR: Denies chest pain, palpitations, or edema. RESPIRATORY: Denies cough or dyspnea. GASTROINTESTINAL: Abdominal pain with nausea and vomiting GENITOURINARY: Denies dysuria or hematuria. SKIN: Denies rash or itching. MUSCULOSKELETAL: Denies back pain, joint pain, or myalgia. NEUROLOGIC: Denies headache, numbness, dizziness, or weakness. PSYCHIATRIC: Denies anxiety or depression. All systems reviewed & are unremarkable except as noted in HPI and below PMFSH Past Medical History Medical History Constipation GERD (gastroesophageal reflux disease) Hypertension OTIS (obstructive sleep apnea) Surgical History Surgical History History of hysterectomy Family History Family History Other Diabetes mellitus Family history of alcoholism Family history of arthritis Family history of genetic disorder Family history of liver disease Hypertension Social History Social History Alcohol intake: current Alcohol use details: ONE DRINK PER MONTH Gender identity (if verbalized by the patient): Female Spiritual care concerns: No Exam Narrative: GENERAL: Well-appearing, well-nourished, and in no acute distress. HEAD: Normocephalic, atraumatic. EYES: PERRLA and EOMI. ENT: Nares clear, no rhinorrhea or epistaxis. Mucous membranes moist. NECK: Supple. No masses. No JVD CHEST: Clear to auscultation. No respiratory distress. No wheezes rales or rhonchi HEART: Regular rate and rhythm. No murmur heard. Normal peripheral pulses. ABDOMEN: Mild tenderness with palpation of the left abdomen no rebound or guarding soft, nondistended. EXTREMITIES: Normal range of motion. No edema. SKIN: Warm, dry, no rash. NEURO: No focal deficits. Alert and oriented x3. PSYCH: Normal mood and affect. Course Reevaluation(s) Reevaluation #1: Patient reports feeling much improved after supportive therapies here in the emergency room. Results reviewed with the patient patient did admit to increased urinary frequency after discussing her UA findings. This in conjunction with her leukocytosis s
== END 2022-02-13 06:36 | disposition home or self-care (01) ==
PROVIDERS: Emergency Provider Emergency Medicine; PCP Internal Medicine
DX: N39.0 Urinary tract infection, site not specified (principal); D72.829 Elevated white blood cell count, unspecified; R11.2 Nausea with vomiting, unspecified; R10.9 Unspecified abdominal pain; I10 Essential (primary) hypertension; K21.9 Gastro-esophageal reflux disease without esophagitis; G47.33 Obstructive sleep apnea (adult) (pediatric)
CPT/HCPCS: 36415; 74176; 80053; 81001; 83690; 85025; 87086; 87088; 96361; 96374; 99284; J2405; J7030

== ENCOUNTER 2022-02-26 07:35 | Outpatient (CLI) | payer MEDICARE, SELFPAY ==
--- NOTE | ~2022-02-26 | MR_ITS ---
EXAMINATION: MR abdomen wo/w con INDICATION: Indeterminate liver mass on CT TECHNIQUE: Coronal SSFSE ARC, WATER:coronal LAVA-FLEX, Coronal 2D FIESTA FatSat, Axial SSFSE BH ARC, Axial 3D DualEcho BH, Axial SSFSE-IR, Axial DWI b=500, Axial 2D FIESTA FatSat, pre and dynamic postco ntrast Axial LAVA ARC, postcontrast Coronal In and Opposed phase LAVA FLEX COMPARISON: CT, 02/13/2022 CONTRAST: Multihance, 15 cc FINDINGS: There are two adjacent masses in the right hepatic lobe which measure 2.5 x 1.6 cm and 1.7 x 1.6 cm. These are mildly T1 hypointense and mildly T2 hyperintense and demonstrate interrupted mimi pheral nodular enhancement on postcontrast images with progressive central filling, consistent with h emangiomas. No suspicious liver mass is identified. The spleen, pancreas, and adrenal glands are norm al. The gallbladder is surgically absent. There are no pathologically enlarged abdominal lymph nodes. No dilated loops of bowel are evident. There is a moderate volume of colonic stool. IMPRESSION: 1. Liver hemangiomas corresponding to the CT finding in question. Reviewed, dictated and finalized at location A.
== END 2022-02-26 07:36 | disposition home or self-care (01) ==
PROVIDERS: PCP Internal Medicine; Visit Provider Physician Assistant Medical
DX: K76.89 Other specified diseases of liver (principal)
CPT/HCPCS: 74183; A9577

== ENCOUNTER 2023-06-21 08:00 | Outpatient (RCR) | payer MEDICARE, SELFPAY ==
--- NOTE | 2023-03-28 13:02 | PTOPEVAL1 ---
Assessment and note entered by Janeth Mcallister, PT Evaluation Information Assessment Status Evaluation Diagnosis cervicalgia, pain in right shoulder Onset 09/2022 Subjective Information Pain began in Aug-September 2022 does a lot of gardening, saws trees, shovels rock. It started at nights, then in December/January came to see primary who stated wear and tear . was given prescription for anti-inflammatory and this helped a little but thinks the best was not doing things for a few weeks . Now that is doing things, is having pain again. Wakes up at night because of pain. Has been modifying sleep by putting RUE on pillow and taking Tylenol. Reported Pain Level Pain Score 2: Self Report Assessment PT Clinical Summary Pt presents with right shoulder pain, pain into upper arm, and cervicalgia. Demo's rounded shoulder posture, decreased cervical spine mobility especially in lateral flexion R>L, (+) right shoulder impingement testing, and globally reduced strength RUE compared to LUE. Pt will benefit from physical therapy to address deficits, and return to prior level of function without pain. Plan of Care Interventions Electrical Stimulation,Hot Pack/Cold Pack,Manual Therapy,Mechanical Traction,Neuro Re-education, Patient/Caregiver Educati,Therapeutic Activities, Therapeutic Exercise,Ultrasound PT Services Indicated Yes Treatment Frequency and 2-3x weekly x 8 weeks Duration These treatments will address the objective and functional deficits as defined above. The patient will be advanced safely and appropriately in order for the patient to progress towards his/her prior level of function. Additional exercises will be introduced and as well as a comprehensive home exercise program upon discharge, if needed, ?to ensure carryover of functional gains achieved in the clinic. This treatment plan has been reviewed and agreement upon by the patient.
--- NOTE | 2023-03-28 13:03 | OPREHPOC ---
Outpatient Therapy Plan of Care This is a Multidisciplinary Plan of Care that may contain components documented by all disciplines (PT, OT, and ST.) PT Goal 1 Goal Pt will be independent in HEP Target Visit 8 PT Goal 2 Goal Pt will verbalize understanding of diagnosis and prognosis Target Visit 8 PT Problem 2 PT Problem #2 Pain PT Goal 1 Goal Pt will report greatest pain level at 3/10 or less Target Visit 8 PT Goal 2 Goal Pt will report resolution of pain Target Visit 16 PT Problem 3 PT Problem #3 Impaired Strength PT Goal 1 Goal Pt will demo equal strength RUE and LUE in all tested planes Target Visit 8 PT Goal 2 Goal Pt will demo strength of 4+/5 in all tested planes Target Visit 16 PT Problem 4 PT Problem #4 Impaired Range of Motion PT Goal 1 Goal Pt will demo full ROM BUE without pain Target Visit 16 PT Goal 2 Goal Pt will demo improved cervical lateral flexion to 45 degrees or greater bilaterally Target Visit 16
--- NOTE | 2023-04-21 11:39 | PCPTNOTE ---
Patient called & cancelled scheduled appointment this date due to being called into work
--- NOTE | 2023-04-27 16:36 | PTOPPROG ---
Assessment and note entered by Janeth Mcallister, PT Assessment Status Progress Diagnosis cervicalgia, pain in right shoulder Onset 09/2022 Subjective Information Self-improvement: Pt reports 50% improvement overall. Will ice her shoulder at night before sleep. Reports pain in underarm is improved, is doing well with her exercises, but still has pain the most at night when sleeping. Soreness in her neck is improved. Assessment PT Clinical Summary Pt has progressed in multiple areas. Slight shift in focus to improve cervical spine mobility today. She reports improvement in shoulder pain and overall improvement of 50% however cont to have increased shoulder pain at night especially. She has improved in her resting muscle tone of her upper trapezius muscles, and in her seated postures. Cont to demo significant lack of right lateral cervical flexion. Pt will benefit from continued therapy to continue progressing and improve pain. Plan of Care Interventions Electrical Stimulation,Hot Pack/Cold Pack,Manual Therapy,Mechanical Traction,Neuro Re-education, Patient/Caregiver Educati,Therapeutic Activities, Therapeutic Exercise,Ultrasound PT Services Indicated Yes Treatment Frequency and cont POC 1-2x weekly x 4 weeks Duration These treatments will address the objective and functional deficits as defined above. The patient will be advanced safely and appropriately in order for the patient to progress towards his/her prior level of function. Additional exercises will be introduced and as well as a comprehensive home exercise program upon discharge, if needed, ?to ensure carryover of functional gains achieved in the clinic. This treatment plan has been reviewed and agreement upon by the patient.
--- NOTE | 2023-06-21 13:20 | PTOPDC ---
Assessment and note entered by Janeth Mcallister, PT Assessment Status Discharge Diagnosis cervicalgia, pain in right shoulder Onset 09/2022 Subjective Information Pt reports feels she has gone back to where she started. Is now having twitching in RUE forearm. she reports she has been icing and this seems to help but is back to having difficulty sleeping at night even with ice and Tylenol. She has also been working a lot and last week her was in the hospital. she had to drive to [place] often because of this. Pt reports she does her shoulder blade squeezes and monitors her posture often because she can do this anywhere. However with her other exercises has only performed HEP 25% of that which was directed by therapist. Reported Pain Level Pain Score 2,2: Self Report Assessment PT Clinical Summary Pt initially was able to attend therapy consistently with some improvement. After last reevaluatoin plan of care was shifted to focus on cervical radiculopathy. Unfortunately however due to scheduling conflicts and outside factors pt was not able to attend therapy consistently nor was she able to perform her home exercises as directed . Today she was educated on home traction unit, encouraged and eductaed on importance of home exercises in continuing/maintaining improvement. Return to therapy was also discussed at a later date when is has more time outside of work schedule. Also patient would likely benefit from additional imaging to assess cervical impingement symptoms and return to provider in case of flare up situation.
== END 2023-06-21 13:54 | disposition home or self-care (01) ==
LOC: ANHHIPT 08:00
PROVIDERS: PCP Physician Assistant Medical; Visit Provider Nurse Practitioner Family
DX: M25.511 Pain in right shoulder (principal); M54.2 Cervicalgia
CPT/HCPCS: 97012; 97014; 97110; 97112; 97140; 97161; 97750; G0283

== ENCOUNTER 2023-12-06 15:04 | Outpatient (CLI) | payer MEDICARE, SELFPAY ==
--- NOTE | 2023-12-12 16:29 | WPDHOLTEREM ---
Holter/Event Monitor Holter/Event Monitor Date of procedure: 12/06/23 Holter/Event Procedure: 48 Hr Holter Monitor Indications: Chest pain/Tachycardia Conclusion: 1. 48 hour holter monitor on 12/06/23. 2. Underlying rhythm is sinus rhythm. HR range 46-112 bpm; average HR 70 bpm. HR at 46 bpm was at 01:53. 3. There are 1,259 premature supraventricular complexes and 11 supraventricular couplets. No supraventricular tachycardia. 4. There are 1,025 premature ventricular complexes, 1 ventricular couplet, 6 ventricular bigeminy, and 24 ventricular trigeminy. No ventricular tachycardia. 5. No sinoatrial or atrioventricular blocks. No significant pauses greater than 2 seconds. 6. Patient reports symptoms of chest ache, dizziness, headache which demonstrate sinus rhythm, HR range 63-92 bpm and 1 PVC.
== END 2023-12-06 15:05 | disposition home or self-care (01) ==
LOC: ANHCARD 15:08
PROVIDERS: PCP Nurse Practitioner Family; Visit Provider Nurse Practitioner Family
DX: R07.9 Chest pain, unspecified (principal)
CPT/HCPCS: 93225; 93226

== ENCOUNTER 2024-04-10 06:49 | Day surgery (SDC) | payer MEDICARE, SELFPAY ==
[2024-03-12 10:20] VITALS: BMI 27.6
[2024-03-25 14:08] VITALS: BMI 27.3
[2024-04-10 07:35] VITALS: BP 125/70; PULSE 62; RESP 14; TEMP 36.6; O2SAT 99
[2024-04-10 07:50] VITALS: BMI 26.9
[2024-04-10] MEDS: LACTATED RINGERS 1,000 ML 150 ML IV CONT (07:54)
--- NOTE | 2024-04-10 07:57 | PM.HPGS ---
History of Present Illness History of Present Illness Consent: Risks, benefits, and alternatives have been discussed and questions answered. Patient agrees to proceed with procedure. Chief complaint: GERD w/o esophagitis. Neoplasm screening. Narrative: Danielle Chavez is a 73 year old female has atypical chest pain. Referred for EGD. Patient has a history of acid reflux and heartburn in the past. Heartburn and regurgitate taking Nexium 20mg p.o. daily. Patient has developed persistent ache in the mid substernal portion of the chest. For this reason EGD requested. Additionally patient is to have screening colonoscopy. Her weight appetite bowel movements are normal. She has had no bleeding. Family history is noncontributory. She desires neoplasia screening. Review of Systems Review of Systems: All systems reviewed & are unremarkable except as noted in HPI and below PMFSH Past Medical History Medical History (Updated 04/10/24 @ 08:00 by Arias Bryant MD) Carpal tunnel syndrome Constipation GERD (gastroesophageal reflux disease) Hypertension IFG (impaired fasting glucose) OTIS (obstructive sleep apnea) Overactive bladder Prolapse of urethra Torn meniscus Surgical History Surgical History History of section History of cholecystectomy History of hysterectomy Family History Family History Other Diabetes mellitus Family history of alcoholism Family history of arthritis Family history of genetic disorder Family history of liver disease Hypertension Social History Social History Smoking status: Never smoker Alcohol intake: never Alcohol use details: ONE DRINK PER MONTH Substance use: never Substance use type: does not use Living arrangements: with family Gender identity (if verbalized by the patient): Female Spiritual care concerns: No Meds Home Medications and Allergies Home Medications Medication Instructions Recorded Confirmed Type trandolapril 4 mg-verapamil ER 240 1 tablet PO HS #90 ea 11/20/23 04/10/24 Rx mg tablet,immed-exten release 24 hr esomeprazole magnesium 20 mg 20 mg PO DAILY #90 caps 03/05/24 04/10/24 Rx capsule,delayed release Allergies Allergy/AdvReac Type Severity Reaction Status Date / Time rizatriptan Allergy Severe HYPERTENSIVE Verified 04/10/24 07:33 CRISIS Sulfa (Sulfonamide Allergy Severe HIVES Verified 04/10/24 07:33 Antibiotics) hydrocodone AdvReac Nausea and Verified 04/10/24 07:33 Vomiting naproxen [From Aleve] AdvReac GI upset Verified 04/10/24 07:33 Vital Signs Vital Signs - 24 hr 04/10/24 07:35 Temperature 97.8 F Pulse Rate 62 Respiratory Rate 14 Blood Pressure 125/70 Pulse Oximetry 99 Oxygen Delivery Room Air Exam Narrative: Physical exam reveals patient to be alert. Vital signs stable. HEENT exam is unremarkable. Patient is anicteric. Lungs are clear to auscultation and percussion. Heart is without murmur or extra sounds. Abdomen bowel sounds are present soft nontender with no organomegaly. Digital external rectal exam normal. Assessment and Plan Assessment and plan (1) Screen for colon cancer: Code(s): Z12.11 - Encounter for screening for malignant neoplasm of colon Status: Acute Assessment and Plan: Presents for neoplasia screening colonoscopy. She appears to be at average risk for colon polyps. Further recommendation is may be given after endoscopy. (2) Atypical chest pain: Code(s): R07.89 - Other chest pain Status: Acute Assessment and Plan: Patient has ongoing substernal pain of uncertain etiology. Not typical for any disease. He tested will be performed. (3) GERD (gastroesophageal reflux disease): Code(s): K21.9 - Gastro-esophageal reflux disease
--- NOTE | 2024-04-10 08:02 | WPDANESEPPF ---
Anes - Initial Pre Proc Eval Procedure: Operation Date: 04/10/24 08:30 Proposed Procedures p Esophagogastroduodenoscopy - Arias Bryant MD s Screening Colonoscopy - Arias Bryant MD Date/Time: 04/10/24 08:02 Surgeon: Arias Bryant MD Pre Op Diagnosis: GERD w/o esophagitis. Neoplasm screening. Patient Data Age: 73 Gender: F Height: 1.57 m Weight: 66.8 kg Last Vital Signs Temp 36.6 C 04/10/24 07:35 Pulse 62 04/10/24 07:35 Resp 14 04/10/24 07:35 BP 125/70 04/10/24 07:35 Pulse Ox 99 04/10/24 07:35 O2 Del Method Room Air 04/10/24 07:35 Allergies Allergy/AdvReac Type Severity Reaction Status Date / Time rizatriptan Allergy Severe HYPERTENSIVE Verified 04/10/24 07:33 CRISIS Sulfa (Sulfonamide Allergy Severe HIVES Verified 04/10/24 07:33 Antibiotics) hydrocodone AdvReac Nausea and Verified 04/10/24 07:33 Vomiting naproxen [From Aleve] AdvReac GI upset Verified 04/10/24 07:33 Home Medications Medication Instructions Recorded Confirmed Type trandolapril 4 mg-verapamil ER 240 1 tablet PO HS #90 ea 11/20/23 04/10/24 Rx mg tablet,immed-exten release 24 hr esomeprazole magnesium 20 mg 20 mg PO DAILY #90 caps 03/05/24 04/10/24 Rx capsule,delayed release Patient hx anesthesia problems: none Family hx anesthesia problems: none Results Review: All pre-operative results and documents have been reviewed as part of the pre-operative evaluation. [facility] Past Medical History Medical History Carpal tunnel syndrome Constipation GERD (gastroesophageal reflux disease) Hypertension IFG (impaired fasting glucose) OTIS (obstructive sleep apnea) Overactive bladder Prolapse of urethra Torn meniscus Surgical History Surgical History History of section History of cholecystectomy History of hysterectomy Family History Family History Other Diabetes mellitus Family history of alcoholism Family history of arthritis Family history of genetic disorder Family history of liver disease Hypertension Social History Social History Smoking status: Never smoker Alcohol intake: never Alcohol use details: ONE DRINK PER MONTH Substance use: never Substance use type: does not use Living arrangements: with family Gender identity (if verbalized by the patient): Female Spiritual care concerns: No Anes - Eval Final PreProcedure Day of Procedure 04/10/24 08:02 Patient weight: overweight Heart: regular rate and rhythm Lungs: clear to auscultation Airway: Mallampati scale class II Neurological: alert and oriented Last oral intake: >/= 8 hours ASA classification: III Emergent: no Anesthetic plan: proceed Anesthesia type and monitoring: general GIVS and standard monitoring Results Review: All pre-operative results and documents have been reviewed as part of the pre-operative evaluation. Informed Consent: The patient's anesthetic plan and its attendant risks and benefits were discussed with the patient/family/POA. Questions were solicited and answers provided to the satisfaction of the patient/family/POA.
[2024-04-10 08:38] VITALS: BP 102/56; PULSE 59; RESP 14; O2SAT 99
[2024-04-10 08:48] VITALS: BP 107/61; PULSE 56; RESP 14; O2SAT 100
--- NOTE | 2024-04-10 08:55 | WPDANESPN ---
Anes - Prog Note Post-Op Date/Time: 04/10/24 08:55 Cardiovascular status: normal Respiratory status: normal Airway patency: baseline Mental status: baseline Post-Op hydration status: normal Vital Signs: Last Vital Signs Temp 36.6 C 04/10/24 07:35 Pulse 56 L 04/10/24 08:48 Resp 14 04/10/24 08:48 BP 107/61 04/10/24 08:48 Pulse Ox 100 04/10/24 08:48 O2 Del Method Room Air 04/10/24 08:48 Pain Score (VAS): 0/10 I/O: Intake & Output 04/09/24 04/10/24 04/10/24 23:59 07:59 15:59 Intake Total 500 Balance 500 Patient Feedback: Patient satisfied with anesthetic care.
[2024-04-10 08:58] VITALS: BP 115/59; PULSE 54; RESP 16; O2SAT 100
== END 2024-04-10 09:06 | disposition home or self-care (01) ==
PROVIDERS: PCP Nurse Practitioner Family; Visit Provider Internal Medicine Gastroenterology
PROC: 0DJ08ZZ Inspection of Upper Intestinal Tract, Via Natural or Artificial Opening Endoscopic (ICD-10-PCS; CPT 43235; principal; 2024-04-10 08:30)
PROC: 0DJD8ZZ Inspection of Lower Intestinal Tract, Via Natural or Artificial Opening Endoscopic (ICD-10-PCS; CPT 45378; 2024-04-10 08:30)
DX: Z12.11 Encounter for screening for malignant neoplasm of colon (principal); R07.89 Other chest pain; K21.9 Gastro-esophageal reflux disease without esophagitis; K64.8 Other hemorrhoids
CPT/HCPCS: 45378; 43239

== ENCOUNTER 2024-09-12 12:28 | Outpatient (CLI) | payer MEDICARE, SELFPAY ==
--- NOTE | ~2024-09-12 | DEXA_ITS ---
Bone Density Report Name: BEKAH OSEGUERA Age: 74 Sex: Female Ethnicity: White Date of : 1950 Indication: postmenopausal; screening for osteoporosis; parental hip fracture; height loss; hysterectomy; Referring Provider: PAULY MIDDLETON Study: Bone densitometry was performed. Exam Date: September 12, 2024 Accession number: [id number] Bone Density: Region BMD T-score Z-score Classification AP Spine(L1-L4) 0.906 -1.3 1.1 Osteopenia Femoral Neck (Left) 0.690 -1.4 0.6 Osteopenia Total Hip (Left) 0.943 0.0 1.7 Normal Femoral Neck (Right) 0.677 -1.5 0.5 Osteopenia Total Hip (Right) 0.889 -0.4 1.3 Normal Total Hip Mean 0.916 -0.2 1.5 Normal World Health Organization criteria for BMD impression classify patients as: Normal (T-score at or above -1.0), Osteopenia (T-score between -1.0 and -2.5), or Osteoporosis (T-score at or below -2.5). 10-year Fracture Risk(1): Major Osteoporotic Fracture 17% Hip Fracture 7.7% Reported Risk Factors: [place] (), Neck BMD=0.677, BMI=30.0, parental fracture (1) FRAX(R) Version 3.08. Fracture probability calculated for an untreated patient. Fracture probability may be lower if the patient has received treatment. Clinical Information Provided by Patient: Parent has had a hip fracture Has the following medical conditions: Hysterectomy Patient maximum height was 62 No regular weight bearing exercise Drinks caffeinated beverages Onset of menses at age 11 Number of children 2 Impression: The patient has low bone mass, based on the Right Femoral Neck T-score. The patient has an estimated ten-year risk of hip fracture of 7.7% and an estimated ten-year risk of major fracture of 17%, based on the WHO FRAX algorithm. The patient has risk factors, including: parental hip fracture. Discussion: BONE DENSITY IS LOW AT ONE OR MORE SKELETAL SITES. THE PATIENT'S BMD AND CLINICAL RISK FACTORS CONTRIBUTE TO THIS PATIENT'S INCREASED RISK OF FRACTURE. This patient's lowest T-score is low at one or more skeletal sites. It meets the World Health Organization's (WHO) criteria for ?low bone mass? (T-score between -1.0 and -2.5). The patient's 10-year risk of hip fracture as calculated by FRAX exceeds the threshold where pharmacological therapy is recommended by the National Osteoporosis Foundation (NOF). However, all treatment decisions require clinical judgment and consideration of individual patient factors, including patient preferences, comorbidities, previous drug use, risk factors not captured in the FRAX model (e.g., frailty, falls, vitamin D deficiency, increased bone turnover, interval significant decline in bone density) and possible under or overestimation of fracture risk by FRAX. The patient should follow a healthful lifestyle (good nutrition with adequate calcium and vitamin D, and appropriate weight-bearing exercise). Follow-Up: Consider a repeat BMD and Vertebral Fracture Assessment (VFA) exam in 2 years or sooner if medically necessary, to reassess this patient's status. Reported by: TRAVIS on 09/12/2024 1:00:00 PM. Reviewed, dictated and finalized at location [facility]
== END 2024-09-12 12:29 | disposition home or self-care (01) ==
PROVIDERS: PCP Nurse Practitioner Family; Visit Provider Nurse Practitioner Family
DX: N95.8 Other specified menopausal and perimenopausal disorders (principal); M85.88 Other specified disorders of bone density and structure, other site; M85.852 Other specified disorders of bone density and structure, left thigh; M85.851 Other specified disorders of bone density and structure, right thigh
CPT/HCPCS: 77080